=== PATIENT | male | born 1950 | race Caucasian/White ===

== ENCOUNTER 2017-01-01 05:38 | Inpatient (IN) | payer MEDICARE ==
[~2017-01-01] VITALS: Ht 180.3 cm; Wt 88.5 kg
[2017-01-01] MEDS ORDERED: HYDROCHLOROTHIA25 MG PO (08:16)
[2017-01-01] MEDS ORDERED: NORVASC10 MG PO (08:16)
[2017-01-01] MEDS ORDERED: ASPIR 8181 MG PO (08:17)
[2017-01-01] MEDS ORDERED: COUMADIN 5MG TAB5 MG PO (08:20)
[2017-01-01] MEDS ORDERED: SOTALOL80 MG PO (08:20)
[2017-01-01] MEDS ORDERED: SINGULAIR10 MG PO (08:22)
[2017-01-01 10:55] LABS: HEMOGLOBIN 13.6 gm/dl (14.0-17.5); RED BLOOD COUNT 4.7 M/UL (4.20-5.50); WHITE BLOOD COUNT 15.2 K/UL (4.5-11.0)
[2017-01-01 11:20] LABS: BUN/CREATININE RATIO 18 (0-10)
[2017-01-02 07:09] LABS: HEMOGLOBIN 13.2 gm/dl (14.0-17.5); RED BLOOD COUNT 4.64 M/UL (4.20-5.50)
[2017-01-02 07:21] LABS: BUN/CREATININE RATIO 23 (0-10)
[2017-01-02 07:32] LABS: WHITE BLOOD COUNT 10.7 K/UL (4.5-11.0)
[2017-01-03 07:10] LABS: HEMOGLOBIN 12.8 gm/dl (14.0-17.5); RED BLOOD COUNT 4.69 M/UL (4.20-5.50); WHITE BLOOD COUNT 8.9 K/UL (4.5-11.0)
[2017-01-03 07:38] LABS: BUN/CREATININE RATIO 12 (0-10)
[2017-01-04 06:06] LABS: HEMOGLOBIN 13.4 gm/dl (14.0-17.5); RED BLOOD COUNT 4.64 M/UL (4.20-5.50); WHITE BLOOD COUNT 6.7 K/UL (4.5-11.0)
[2017-01-04 06:27] LABS: BUN/CREATININE RATIO 12 (0-10)
[2017-01-05 05:38] LABS: HEMOGLOBIN 12.9 gm/dl (14.0-17.5); RED BLOOD COUNT 4.54 M/UL (4.20-5.50); WHITE BLOOD COUNT 6.6 K/UL (4.5-11.0)
[2017-01-05 05:59] LABS: BUN/CREATININE RATIO 15 (0-10)
[2017-01-05] MEDS ORDERED: CIPRO500 MG PO (10:05)
[2017-01-05] MEDS ORDERED: FLAGYL500 MG PO (10:06)
== END 2017-01-05 11:40 | disposition home or self-care (01) | DRG 872 ==
LOC: M/S 07:23
PROVIDERS: Emergency Medicine; Physician Assistant; ADMIT Internal Medicine
DX: A41.59 Other Gram-negative sepsis (principal); K83.0 Cholangitis; R17 Unspecified jaundice; D68.9 Coagulation defect, unspecified; I48.0 Paroxysmal atrial fibrillation; E87.6 Hypokalemia; I25.10 Atherosclerotic heart disease of native coronary artery without angina pectoris; I10 Essential (primary) hypertension; E78.5 Hyperlipidemia, unspecified; T45.515A Adverse effect of anticoagulants, initial encounter; R82.90 Unspecified abnormal findings in urine; Z86.718 Personal history of other venous thrombosis and embolism; Z87.891 Personal history of nicotine dependence; Z79.01 Long term (current) use of anticoagulants; Z79.82 Long term (current) use of aspirin; Z79.899 Other long term (current) drug therapy; Z90.49 Acquired absence of other specified parts of digestive tract; Z98.890 Other specified postprocedural states; Z80.8 Family history of malignant neoplasm of other organs or systems; Z82.49 Family history of ischemic heart disease and other diseases of the circulatory system
CPT/HCPCS: 36415; 71010; 74181; 76705; 80053; 80074; 80307; 81001; 82150; 82248; 82550; 82553; 83690; 83735; 84132; 84484; 85027; 85610; 87040; 93005; J1335; J2270; J7030; J7050